=== PATIENT | male | born 1960 | race Caucasian/White ===

== ENCOUNTER → 2021-02-01 | Outpatient (REF) ==
--- NOTE | 2021-02-01 10:29 | REP ---
INDICATION: PAIN COMPARISON: None. TECHNIQUE: AP, lateral, coned-down views of the lumbar spine. FINDINGS: Three views of the lumbosacral spine demonstrate satisfactory alignment and lordosis without acute fracture / compression injury or subluxation. Age-related multilevel degenerative changes include endplate sclerosis, facet hypertrophy and very subtle marginal spurring primarily noted at L3 through S1. Mild disc space narrowing at L5-S1 also identified. IMPRESSION: 1. No acute fracture / compression injury or subluxation. 2. Mild age-related degenerative changes. <Electronically signed by Eliceo Culver > 02/01/21 1026
== END ==
LOC: M PLAIMG 09:44
PROVIDERS: ATTEND Internal Medicine
DX: M54.50 Low back pain, unspecified (principal); M51.37 Other intervertebral disc degeneration, lumbosacral region; M25.78 Osteophyte, vertebrae

== ENCOUNTER → 2021-12-15 | Outpatient (CLI) | payer OTHER ==
[~2021-12-15] MED LIST: METHACHOLINE KIT (J7674) INH ONE
== END ==
LOC: M CARPUL 07:32
PROVIDERS: ATTEND Physician Assistant
DX: R06.00 Dyspnea, unspecified (principal)
CPT/HCPCS: 94070; J7674